=== PATIENT | male | born 1950 | race Asian ===

== ENCOUNTER 2019-03-11 08:35 | Inpatient (IN) | payer BC, MEDICARE ==
[~2019-03-11] VITALS: Ht 167.6 cm; Wt 63.6 kg
[2019-03-11] MEDS ORDERED: DICL50TA14 PO (09:10)
[2019-03-11] MEDS ORDERED: DICL100G15 TOP (09:10)
[2019-03-11] MEDS ORDERED: DEC1T PO (09:10)
--- NOTE | 2019-03-11 09:14 | NUR ---
Pt. transferred to CT by school transportation supervisor.
--- NOTE | 2019-03-11 09:20 | NUR ---
Returned to room [address]
[2019-03-11] MEDS ORDERED: methylPREDNISolone sod succ 125mg/2ml vial IV ONE (09:50)
[2019-03-11 10:03] LABS: BASOPHILS % (AUTO) 0.1 % (0-1); EOSINOPHILS % (AUTO) 0 % (0-6); HEMATOCRIT 43.7 % (42.0-52.0); HEMOGLOBIN 14.7 g/dl (14.0-17.9); LYMPHOCYTES # (AUTO) 0.4 X10'3 (1.1-4.8); LYMPHOCYTES % (AUTO) 3.3 % (21-51); MEAN CORPUSCULAR HEMOGLOBIN 31.1 PG (27.0-31.0); MEAN CORPUSCULAR HGB CONC 33.6 g/dL (33.0-36.5); MEAN CORPUSCULAR VOLUME 92.6 FL (78-98); MEAN PLATELET VOLUME 9.3 FL (7.4-10.4); MONOCYTES # (AUTO) 0.2 X10'3 (0-0.9); MONOCYTES % (AUTO) 1.4 % (2-12); NEUTROPHILS # (AUTO) 10.8 X10'3 (1.8-7.7); NEUTROPHILS % (AUTO) 95.2 % (42-75); PLATELET COUNT 131 X10'3 (140-440); RED BLOOD COUNT 4.72 X10'6 (4.70-6.10); RED CELL DISTRIBUTION WIDTH 14.6 % (11.5-14.5); WHITE BLOOD COUNT 11.3 X10'3 (4.5-11.0)
[2019-03-11 10:05] LABS: ALANINE AMINOTRANSFERASE 24 U/L (12-78); ALBUMIN 3.1 G/DL (3.4-5.0); ALKALINE PHOSPHATASE 94 IU/L (46-116); ANION GAP 9 (8-16); ASPARTATE AMINO TRANSFERASE 22 U/L (10-37); BILIRUBIN,TOTAL 1.6 MG/DL (0.1-1.0); BLOOD UREA NITROGEN 15 MG/DL (7-18); BUN/CREATININE RATIO 13.9 (5.4-32.0); CALCIUM 7.6 MG/DL (8.5-10.1); CHLORIDE 109 MMOL/L (99-107); CREATININE 1.08 MG/DL (0.60-1.10); GLUCOSE 109 MG/DL (70-104); POTASSIUM 4.1 MMOL/L (3.5-5.1); SODIUM 144 MMOL/L (135-145); TOTAL CARBON DIOXIDE 25.9 MMOL/L (24-32); TOTAL PROTEIN 6.2 G/DL (6.4-8.2); eGFR 68 ML/MIN
[2019-03-11] MEDS ORDERED: DICL35CA PO (10:15)
[2019-03-11] MEDS ORDERED: morphine 2 MG/ML inj. syringe IV PRN ×2 (10:45)
[2019-03-11] MEDS ORDERED: ondansetron/PF 4mg/2ml inj IV PRN (10:45)
[2019-03-11] MEDS ORDERED: magnesium hydroxide 30ml (MOM) UD suspension PO PRN (10:45)
[2019-03-11] MEDS ORDERED: mag hydrox/Alum hydrox/simeth 30ml oral suspension PO PRN (10:45)
[2019-03-11] MEDS ORDERED: acetaminophen 325mg tablet PO PRN (10:45)
[2019-03-11] MEDS: normal saline 1000ml 1,000 ML IV SCH ×2 (10:58→23:30)
[2019-03-11 11:39] VITALS: BP 126/69
--- NOTE | 2019-03-11 11:40 | NUR ---
Patient has been admitted to room PCU 3023 from ED. I have received report from Tye KEYS and had the opportunity to ask questions and assume patient care. Pt arrived on unit @ 1120 via gurney and 1 RN and and sister, VS 97.9 60 16 126/69 96% on RA, pain 0/10, Tele monitor 57 placed, pt oriented to room, JEROME nurse is with pt, all needs met at this time, will continue to monitor.
--- NOTE | 2019-03-11 14:03 | NUR ---
Patient refused meal and ate home made soup and rice Addendum: 03/11/19 at 1404 by Elizabeth Llanos RN Amended: Links added.
[2019-03-11 15:00] VITALS: BP 115/65
[2019-03-11] MEDS: CefTRIAXone 2gm/D5W 50ml 50 ML IV SCH (17:59)
[2019-03-11 18:11] LABS: CLARITY,URINE CLEAR (Clear); COLOR,URINE YELLOW (Yellow); GLUCOSE, URINE NEGATIVE (Neg); KETONES,URINE TRACE mg/dl (Neg); LEUKOCYTE ESTERASE ,URINE NEGATIVE (Neg); NITRITES, URINE NEGATIVE (Neg); OCCULT BLOOD,URINE NEGATIVE (Neg); PROTEIN,URINE TRACE mg/dl (Neg)
[2019-03-11 18:12] LABS: UA COLLECTION TYPE CLN CATCH MIDSTREAM
[2019-03-11 18:19] LABS: MUCUS STRANDS MODERATE /LPF (Neg); SQUAMOUS EPITHELIAL CELL,UR FEW /LPF (FEW)
[2019-03-11 18:20] LABS: WBC,URINE 0-4 /HPF (0-4)
--- NOTE | 2019-03-11 18:20 | NUR ---
Patient in room PCU 3023. I have received report from Elizabeth KEYS, and had the opportunity to ask questions and assume patient care.
[2019-03-11 18:21] LABS: BACTERIA,URINE FEW /HPF (Neg); RBC,URINE 0-2 /HPF (0-2)
--- NOTE | 2019-03-11 18:26 | NUR ---
Problems reprioritized. Patient report given, questions answered & plan of care reviewed with Caleb KEYS.
[2019-03-11 19:00] VITALS: BP 112/63
[2019-03-11] MEDS: enoxaparin 40mg/0.4ml syringe SQ SCH (19:55)
[2019-03-11] MEDS: enoxaparin 30mg/0.3ml syringe SUBCUT SCH (20:08)
[2019-03-11] MEDS ORDERED: diphenhydrAMINE 25mg capsule PO ONE (22:45)
[2019-03-11 23:00] VITALS: BP 110/70
[2019-03-12 03:00] VITALS: BP 120/62
[2019-03-12 06:00] VITALS: BP 122/58
--- NOTE | 2019-03-12 06:21 | NUR ---
Problems reprioritized. Patient report given, questions answered & plan of care reviewed with Elizabeth KEYS.
[2019-03-12] MEDS: normal saline 1000ml 1,000 ML IV SCH ×2 (06:42→20:33)
--- NOTE | 2019-03-12 06:49 | NUR ---
Patient in room PCU 3023. I have received report from Caleb KEYS and had the opportunity to ask questions and assume patient care. Pt is in bed sleeping, all needs met at this time.
[2019-03-12 07:20] LABS: ALBUMIN 2.9 G/DL (3.4-5.0); ANION GAP 7 (8-16); BLOOD UREA NITROGEN 21 MG/DL (7-18); BUN/CREATININE RATIO 19.1 (5.4-32.0); CALCIUM 7.7 MG/DL (8.5-10.1); CHLORIDE 111 MMOL/L (99-107); GLUCOSE 130 MG/DL (70-104); SODIUM 144 MMOL/L (135-145); TOTAL CARBON DIOXIDE 25.7 MMOL/L (24-32); eGFR 66 ML/MIN
[2019-03-12 07:24] LABS: BASOPHILS % (AUTO) 0.1 % (0-1); EOSINOPHILS % (AUTO) 0 % (0-6); HEMATOCRIT 38.2 % (42.0-52.0); HEMOGLOBIN 12.7 g/dl (14.0-17.9); LYMPHOCYTES # (AUTO) 1.3 X10'3 (1.1-4.8); LYMPHOCYTES % (AUTO) 10.5 % (21-51); MEAN CORPUSCULAR HGB CONC 33.2 g/dL (33.0-36.5); MEAN CORPUSCULAR VOLUME 93.4 FL (78-98); MEAN PLATELET VOLUME 10.2 FL (7.4-10.4); MONOCYTES # (AUTO) 0.6 X10'3 (0-0.9); MONOCYTES % (AUTO) 4.5 % (2-12); NEUTROPHILS # (AUTO) 10.8 X10'3 (1.8-7.7); NEUTROPHILS % (AUTO) 84.9 % (42-75); PLATELET COUNT 118 X10'3 (140-440); RED BLOOD COUNT 4.09 X10'6 (4.70-6.10); RED CELL DISTRIBUTION WIDTH 14.8 % (11.5-14.5); WHITE BLOOD COUNT 12.7 X10'3 (4.5-11.0)
[2019-03-12] MEDS: enoxaparin 30mg/0.3ml syringe SUBCUT SCH ×2 (07:47→20:29)
[2019-03-12] MEDS: enoxaparin 40mg/0.4ml syringe SQ SCH ×2 (07:47→20:28)
[2019-03-12] MEDS: atorvastatin 20mg tablet PO SCH (07:47)
[2019-03-12] MEDS: aspirin 81mg tablet.DR PO SCH (07:47)
[2019-03-12] MEDS: CefTRIAXone 2gm/D5W 50ml 50 ML IV SCH (07:48)
[2019-03-12] MEDS ORDERED: aminophylline 250mg/10ml inj. IV PRN (09:10)
[2019-03-12] MEDS ORDERED: nitroGLYCERIN 0.4mg SUBLingual tab SL PRN (09:10)
[2019-03-12] MEDS ORDERED: regadenoson 0.4mg/5ml syringe IV ONE (09:10)
[2019-03-12] MEDS ORDERED: metoprolol tartrate 1mg/ml inj IV PRN (09:10)
[2019-03-12] MEDS: azelastine Nasal Spray bottle NS SCH ×2 (09:40→20:29)
--- NOTE | 2019-03-12 09:52 | NUR ---
Spoke w/ dr. Jessu in regards to pt c/o allergies, received orders for Claritin and nasal spray for allergies
[2019-03-12] MEDS: loratadine 10mg tablet PO SCH (10:22)
[2019-03-12 11:00] VITALS: BP 129/68
[2019-03-12 15:00] VITALS: BP 143/63
[2019-03-12 18:00] VITALS: BP 146/68
--- NOTE | 2019-03-12 18:53 | NUR ---
Patient in room U 3023. I have received report from Elizabeth Hernandez and had the opportunity to ask questions and assume patient care. Addendum: 03/12/19 at 1853 by Nirmala Lopez RN Amended: Links added.
--- NOTE | 2019-03-12 19:33 | NUR ---
Problems reprioritized. Patient report given, questions answered & plan of care reviewed with Nirmala KEYS.
--- NOTE | 2019-03-12 20:15 | NUR ---
reviewed plan of vare with pt speaks very broken small amount of [place].
[2019-03-12] MEDS: lactobacillus rhamnosus 10,000 MMU CELLS/CAPSULE PO SCH (20:29)
[2019-03-12 22:00] VITALS: BP 162/83
--- NOTE | 2019-03-12 22:47 | NUR ---
RETING ON SIDE EYES CLOSED NO S&S OF DISTRESS.
--- NOTE | 2019-03-12 23:07 | NUR ---
resting no changes
[2019-03-13] VITALS (11 sets, daily range): BP systolic 133–181; BP diastolic 65–88
--- NOTE | 2019-03-13 00:24 | NUR ---
resting without changes.
--- NOTE | 2019-03-13 02:20 | NUR ---
heart rate in 40's pt in deep sleep snoring. awoke rate went back up pt denies any complaints of pain or discomfort
[2019-03-13] MEDS: normal saline 1000ml 1,000 ML IV SCH ×2 (02:42→07:30)
--- NOTE | 2019-03-13 04:09 | NUR ---
resting no chg
--- NOTE | 2019-03-13 05:26 | NUR ---
pt awake sitting up in chair. no complaints.
--- NOTE | 2019-03-13 06:00 | NUR ---
Patient in room PCU 3023. I have received report from Nirmala KEYS and had the opportunity to ask questions and assume patient care.
--- NOTE | 2019-03-13 06:11 | NUR ---
Problems reprioritized. Patient report given, questions answered & plan of care reviewed with Manju Hernandez. Addendum: 03/13/19 at 0611 by Nirmala Lopez RN Amended: Links added.
[2019-03-13 06:40] LABS: BASOPHILS # (AUTO) 0.1 X10'3 (0-0.2); BASOPHILS % (AUTO) 0.8 % (0-1); EOSINOPHILS # (AUTO) 0.2 X10'3 (0-0.9); EOSINOPHILS % (AUTO) 2.2 % (0-6); HEMOGLOBIN 13.8 g/dl (14.0-17.9); LYMPHOCYTES # (AUTO) 2.6 X10'3 (1.1-4.8); LYMPHOCYTES % (AUTO) 35.9 % (21-51); MEAN CORPUSCULAR HEMOGLOBIN 31.1 PG (27.0-31.0); MEAN CORPUSCULAR HGB CONC 33.6 g/dL (33.0-36.5); MEAN CORPUSCULAR VOLUME 92.4 FL (78-98); MEAN PLATELET VOLUME 9.6 FL (7.4-10.4); MONOCYTES # (AUTO) 0.6 X10'3 (0-0.9); MONOCYTES % (AUTO) 8.1 % (2-12); NEUTROPHILS # (AUTO) 3.8 X10'3 (1.8-7.7); PLATELET COUNT 115 X10'3 (140-440); RED BLOOD COUNT 4.43 X10'6 (4.70-6.10); RED CELL DISTRIBUTION WIDTH 14.5 % (11.5-14.5); WHITE BLOOD COUNT 7.2 X10'3 (4.5-11.0)
[2019-03-13] MEDS: CefTRIAXone 2gm/D5W 50ml 50 ML IV SCH (07:27)
[2019-03-13] MEDS: enoxaparin 30mg/0.3ml syringe SUBCUT SCH (07:28)
[2019-03-13] MEDS: loratadine 10mg tablet PO SCH (07:28)
[2019-03-13] MEDS: azelastine Nasal Spray bottle NS SCH (07:28)
[2019-03-13] MEDS: lactobacillus rhamnosus 10,000 MMU CELLS/CAPSULE PO SCH (07:28)
[2019-03-13] MEDS: aspirin 81mg tablet.DR PO SCH (07:28)
[2019-03-13] MEDS: atorvastatin 20mg tablet PO SCH (07:28)
[2019-03-13] MEDS: enoxaparin 40mg/0.4ml syringe SQ SCH (07:29)
[2019-03-13] MEDS ORDERED: lisinopril 5mg tablet PO SCH (08:00)
[2019-03-13 08:08] LABS: ALBUMIN 3.1 G/DL (3.4-5.0); ANION GAP 10 (8-16); BLOOD UREA NITROGEN 14 MG/DL (7-18); BUN/CREATININE RATIO 15.2 (5.4-32.0); CALCIUM 7.9 MG/DL (8.5-10.1); CHLORIDE 111 MMOL/L (99-107); CHOL/HDL RATIO 3.5 (0.00-4.99); CHOLESTEROL 145 MG/DL (0-200); CREATININE 0.92 MG/DL (0.60-1.10); GLUCOSE 86 MG/DL (70-104); HDL CHOLESTEROL 41 MG/DL (35-60); LDL CHOLESTEROL 94 MG/DL (50-100); POTASSIUM 3.4 MMOL/L (3.5-5.1); SODIUM 146 MMOL/L (135-145); TOTAL CARBON DIOXIDE 25.5 MMOL/L (24-32); TRIGLYCERIDES 84 MG/DL (20-135); eGFR 82 ML/MIN
[2019-03-13] MEDS ORDERED: LISI-642 PO (13:00)
[2019-03-13] MEDS ORDERED: CARV3.12 PO (13:00)
[2019-03-13] MEDS ORDERED: ASPI-1071 PO (13:00)
[2019-03-13] MEDS ORDERED: ATOR20TA66 PO (13:00)
--- NOTE | 2019-03-13 14:45 | NUR ---
Patient stable for discharge per MD orders. All discharge instructions reviewed with patient and all questions answered. New prescriptions called into preferred pharmacy. PIV & Tele monitor discontinued. Belongings collected and sent with patient. Patient left with family member in private vehicle. Patient wheeled to lobby by primary RN.
--- NOTE | 2019-03-13 15:41 | NUR ---
[place] Medication Administration: For this medication-pass time frame, all medication were reviewed, dispensed, administered and documented per hospital policy by Manju KEYS.
--- NOTE | 2019-03-13 15:41 | NUR ---
[place] documentation: I have reviewed and agree with all interventions, assessments performed and documented by Manju KEYS.
== END 2019-03-13 14:45 | disposition home or self-care (01) | DRG 282 ==
LOC: ER 08:36 → PCU 3S 11:15
PROVIDERS: ADMIT Family Medicine; ATTEND Family Medicine
PROC: 4A02XM4 Measurement of Cardiac Total Activity, External Approach (ICD-10-PCS; principal; 2019-03-13)
PROC: 3E033HZ Introduction of Radioactive Substance into Peripheral Vein, Percutaneous Approach (ICD-10-PCS; 2019-03-13)
DX: I21.4 Non-ST elevation (NSTEMI) myocardial infarction (principal); J20.9 Acute bronchitis, unspecified; Z79.82 Long term (current) use of aspirin; Z79.899 Other long term (current) drug therapy
CPT/HCPCS: 36415; 71250; 78452; 80048; 80053; 80061; 81001; 83605; 83735; 83880; 84145; 84484; 85025; 87040; 87081; 93005; 93017; 93306; 96374; 99285; A9500; G0378; J0696; J1650; J2785; J2930; J7030; Q0163